=== PATIENT | female | born 1970 | race Caucasian/White ===

== ENCOUNTER 2016-12-05 22:04 | Inpatient (IN) | payer BC, OTHER ==
[~2016-12-05] VITALS: Ht 160 cm; Wt 59.0 kg
[~2016-12-05 22:04] MED LIST: DOXYCYCLINE 10100 MG PO; KEFLEX500 MG PO; LEXAPRO20 MG PO; NOHOMEMEDICATIONS; NORVASC5 MG PO; PERCOCET 5-3251 EACH PO; PHENERGAN 25 MG25 M1 PO
[2016-12-05 22:12] VITALS: BP 172/119
[2016-12-05 23:22] LABS: ABSOLUTE NEUTROPHILS 6.2 thou/uL (1.4-8.2); BASOPHILS 0.3 % (0.0-2.0); EOSINOPHILS 2.5 % (0.0-3.0); HEMATOCRIT 45.2 % (37.0-47.0); HEMOGLOBIN 15.6 gm/dL (12.0-15.0); LYMPHOCYTES 22.4 % (24.0-44.0); MCH 30.1 pg (26.0-34.0); MCHC 34.4 g/dL (28.0-37.0); MCV 87.5 fL (80.0-100.0); MONOCYTES 4.4 % (1.0-8.0); PLATELET COUNT 173 thou/uL (150-400); POLYS 70.4 % (36.0-66.0); RBC 5.17 mil/uL (4.20-5.00); RDW 12.5 % (10.5-14.5); WBC 8.8 thou/uL (4.0-11.0)
[2016-12-05 23:23] LABS: MANUAL DIFF NO; URINE BILIRUBIN NEGATIVE (Negative); URINE BLOOD 1+ (Negative); URINE COLOR YELLOW; URINE GLUCOSE-RANDOM* 3+ (Negative); URINE KETONES NEGATIVE (Negative); URINE NITRITE NEGATIVE (Negative); URINE PROTEIN (DIPSTICK) NEGATIVE (Negative); URINE SPECIFIC GRAVITY <= 1.005 (1.003-1.035); URINE UROBILINOGEN 0.2 E.U./dl (0.2-1.0)
[2016-12-05 23:33] LABS: ALBUMIN 3.3 g/dL (3.4-5.0); CALCIUM 9.2 mg/dL (8.5-10.1); CREATININE 0.9 mg/dL (0.6-1.0); POTASSIUM 3.9 mmol/L (3.5-5.1); TOTAL BILIRUBIN 0.4 mg/dL (<0.1-1.0); TOTAL PROTEIN 6.4 g/dL (6.4-8.2)
[2016-12-05 23:40] LABS: BACTERIA 1-9 Few /HPF (None Seen); CASTS None Seen /LPF (None Seen); CRYSTALS None Seen /LPF (None Seen); SQUAMOUS >10 Many /LPF (0-3); URINE RBC 0-2 Rare /HPF (0-2); URINE WBC None Seen /HPF (0-5); YEAST Present (None Seen)
[2016-12-06] MEDS ORDERED: LISINOPRIL10 MG PO (01:21)
[2016-12-06 01:24] VITALS: BP 175/105
[2016-12-06 04:28] VITALS: BP 156/90
[2016-12-06] MEDS ORDERED: XANAX 0.5 MG0.5 MG PO (05:36)
[2016-12-06 05:51] LABS: HEMATOCRIT 42.7 % (37.0-47.0); MCH 30.3 pg (26.0-34.0); MCHC 35.2 g/dL (28.0-37.0); MCV 86.1 fL (80.0-100.0); RBC 4.96 mil/uL (4.20-5.00); RDW 12.5 % (10.5-14.5)
[2016-12-06 06:04] LABS: CALCIUM 8.3 mg/dL (8.5-10.1); CREATININE 0.4 mg/dL (0.6-1.0); POTASSIUM 3.4 mmol/L (3.5-5.1)
[2016-12-06] MEDS ORDERED: NEURONTIN 300300 M1 PO (07:43)
[2016-12-06] MEDS ORDERED: GLUCOPHAGE XR750 MG PO (07:43)
[2016-12-06] MEDS ORDERED: AMARYL2 MG PO (07:44)
[2016-12-06 14:09] VITALS: BP 156/90
== END 2016-12-06 15:30 | disposition home or self-care (01) | DRG 74 ==
LOC: ER 22:04 → EROBS 12-06 00:32 → 3N 12-06 01:29 → ENTRNSPT 12-06 14:58 → EDTRNSPTSTS 12-06 15:02 → 3N 12-06 15:30
PROVIDERS: Emergency Medicine; Family Medicine
DX: E11.40 Type 2 diabetes mellitus with diabetic neuropathy, unspecified (principal); E11.65 Type 2 diabetes mellitus with hyperglycemia; F32.9 Major depressive disorder, single episode, unspecified; M54.5 Low back pain; K59.00 Constipation, unspecified; F41.9 Anxiety disorder, unspecified; I10 Essential (primary) hypertension; F17.210 Nicotine dependence, cigarettes, uncomplicated; Z79.84 Long term (current) use of oral hypoglycemic drugs; Z79.4 Long term (current) use of insulin; Z79.899 Other long term (current) drug therapy
CPT/HCPCS: 10094

== ENCOUNTER 2017-10-19 13:49 | Emergency (ER) | payer BC, OTHER ==
[~2017-10-19] VITALS: Ht 157.5 cm; Wt 54.4 kg
[~2017-10-19 13:49] MED LIST changes: +AMARYL2 MG PO; +FLEXERIL PO; +GLUCOPHAGE XR750 MG PO; +HYDROCODONE-AP1 EAC6 PO; +LISINOPRIL10 MG PO; +NEURONTIN 300300 M1 PO; +OXYCODONE HCL 55 MG PO; +XANAX 0.5 MG0.5 MG PO
[2017-10-19] MEDS ORDERED: BACTRIM DS TAB1 EACH PO (14:15)
== END 2017-10-19 14:42 | disposition home or self-care (01) ==
LOC: ER 13:49
DX: L03.211 Cellulitis of face (principal); L73.2 Hidradenitis suppurativa; E11.9 Type 2 diabetes mellitus without complications; F17.210 Nicotine dependence, cigarettes, uncomplicated; F32.9 Major depressive disorder, single episode, unspecified; F41.9 Anxiety disorder, unspecified; I10 Essential (primary) hypertension; E28.2 Polycystic ovarian syndrome

== ENCOUNTER → 2020-07-06 | Outpatient (CLI) | payer BC, OTHER ==
[~2020-07-06] MED LIST changes: +BACTRIM DS TAB1 EACH PO; +BASAGLAR K100 UNIT/1 SUBQ; +DAILY VALUE1 EAC1 PO; +LEXAPRO 10 MG T10 MG PO
== END ==
LOC: LAB 09:02
PROVIDERS: Student in an Organized Health Care Education/Training Program; ATTEND Otolaryngology Plastic Surgery within the Head & Neck
DX: Z01.812 Encounter for preprocedural laboratory examination (principal); Z20.822 Contact with and (suspected) exposure to COVID-19

== ENCOUNTER 2020-07-07 10:53 | Day surgery (SDC) | payer BC, OTHER ==
[~2020-07-07] VITALS: Ht 157.5 cm; Wt 63.0 kg
--- NOTE | ~2020-07-07 | O ---
[facility] [place] [address] OPERATIVE REPORT Name: AMY VARGAS Room #: 150-8 [facility] M.R.#: [id number] Admission: 07/07/20 Attend Phys: Jesse Ha MD Discharge: Date of : 66 Report #: [id number] THIS REPORT FOR: cc: Garrett Lazcano MD, Neal A. MD Thompson,Jesse Jacobs MD ~ DATE OF SERVICE: 07/07/2020 SURGEON: Dr. Jesse Ha. PREOPERATIVE DIAGNOSES: 1. Multinodular thyroid. 2. Intranasal lesion. POSTOPERATIVE DIAGNOSES: 1. Multinodular thyroid. 2. Intranasal lesion. OPERATIVE PROCEDURES: 1. Total thyroidectomy. 2. Excision of intranasal lesion. ANESTHESIA: General. ESTIMATED BLOOD LOSS: 30 mL. INDICATIONS FOR SURGERY: The patient is a 50-year-old female with a large multinodular thyroid. The radiology with an ultrasound documented large multinodular thyroid with a very suspicious right-sided nodule. In the bases above at least needle biopsy was recommended. The patient favors proceeding with surgery. Given the findings on ultrasound, I was agreeable to this approach. She also has had a nagging right-sided intranasal lesion. DESCRIPTION OF PROCEDURE: The patient was placed on the operating table in supine position. After general endotracheal anesthesia was achieved and after intubation with a Telisma NIM (nerve integrity monitor), endotracheal tube, each recurrent laryngeal nerve was monitored at threshold sensitivity of 100 microvolt. Stimulator set at 1.0 milliamps. Both recurrent laryngeal nerves identified and preserved during the course of the procedure with the assistance of the nerve monitor and the nerve stimulator. Standard low collar horizontal skin crease incision was outlined in the lower portion of the neck. Skin site was injected with lidocaine with epinephrine. The neck was prepped and draped in sterile fashion. Incision made through skin and subcutaneous tissue and platysma. Subplatysmal skin flaps were elevated [facility] [address] [place] [address] OPERATIVE REPORT Name: AMY VARGAS Room #: 150-8 [facility] M.R.#: [id number] Admission: 07/07/20 Attend Phys: Jesse Ha MD Discharge: Date of : 66 Report #: [id number] superiorly and inferiorly. The strap muscles were divided along the median raphe and retracted laterally allowing exposure of each thyroid lobe. Again, the thyroid gland was multinodular in architecture. I turned my attention to the right side. The inferior pole vessels were isolated. These were divided with Harmonic scalpel. The middle thyroid vein was divided with Harmonic scalpel. The inferior parathyroid was not identified. The superior pole vessels were isolated with upward retraction of strap muscles were divided with Harmonic scalpel. As the gland was rotated over a parathyroid gland was noted on the undersurface just under the right thyroid lobe and preserved. The right recurrent laryngeal nerve was felt into the larynx and preserved, ____ stimulator at all times. Suspension ligament was divided medial and superficial to the nerve. The isthmus was divided and the multinodular right thyroid removed and sent as specimen for frozen section. This was reviewed by pathology and there were no concerning features of papillary thyroid carcinoma noted on frozen section. I turned my attention to the left side. Similar procedure performed. The inferior pole vessels were isolated. They were divided with Harmonic scalpel. The left recurrent laryngeal nerve was identified deep to the left thyroid lobe with a tracheoesophageal groove and followed it up to and into the larynx. The middle thyroid vein was divided with Harmonic scalpel. Superior pole vessels were isolated and divided with Harmonic scalpel. As the gland was rotated over the undersurface of the left thyroid lobe was dissected away from the 2 parathyroid glands, both of which were preserved. The suspension ligament was divided medial and superficial to the nerve. The left thyroid lobe was dissected off the trachea and removed and sent as a specimen. Bipolar cautery was used appropriately to achieve hemostasis. The wound was irrigated with saline. The integrity of each recurrent laryngeal nerve was confirmed with the stimulator. After the pathology, a 10-Guyanese Erick drain was placed in the wound and brought out through stab incision where it was secured to the skin with an Op-Site dressing. The strap muscles were reapproximated with 3-0 Vicryl and skin was closed with buried layer of 4-0 Vicryl and Dermabond. Attention was then turned to the nose. The patient was concerned about this right intranasal lesion. I injected 1 mL lidocaine with epinephrine into the nasal vestibule. I used a 15 blade knife to excise a right lateral nasal vestibule lesion that looks like a wart. This was sent for permanent histopathology. I cauterized the base of this with electrocautery. I then examined the throat at the request of the patient with a tongue depressor and Gilbert Florentino mouth gag. There were 2+ tonsils with cryptic change and tonsil stones. There is no evidence of any malignancy or series pathology. [facility] [address] [place] [address] OPERATIVE REPORT Name: AMY VARGAS Room #: 150-8 [facility]..#: [id number] Admission: 07/07/20 Attend Phys: Jesse Ha MD Discharge: Date of : 66 Report #: [id number] The patient was awakened in the operating room, taken to recovery in stable condition. She was discharged home in the morning after drain removal with Synthroid, cefadroxil, calcium carbonate, calcitriol, acetaminophen with hydrocodone. Her diet is as tolerated. Activity is limited. She also has a serum calcium level on the third postoperative day and return visit in 1 week. By: 1516 1559 Jesse Ha MD /nt
[2020-07-07 11:50] LABS: HEMATOCRIT 47.5 % (37.0-47.0); HEMOGLOBIN 15.8 gm/dL (12.0-15.0); MCH 28.6 pg (26.0-34.0); MCHC 33.2 g/dL (28.0-37.0); MCV 86.2 fL (80.0-100.0); RBC 5.51 mil/uL (4.20-5.00); RDW 13.3 % (10.5-14.5); WBC 12.2 thou/uL (4.0-11.0)
[2020-07-07 11:57] VITALS: BP 163/104
[2020-07-07 11:59] LABS: CALCIUM 9.1 mg/dL (8.5-10.1); CREATININE 0.9 mg/dL (0.6-1.0); POTASSIUM 4.1 mmol/L (3.5-5.1)
[2020-07-07 12:05] LABS: ALBUMIN 3.5 g/dL (3.4-5.0); TOTAL BILIRUBIN 0.6 mg/dL (0.2-1.0); TOTAL PROTEIN 7.2 g/dL (6.4-8.2)
--- NOTE | 2020-07-07 15:30 | EKG ---
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 : 1970 Requested By: Jesse Ha Order Number: [id number] : Kenji Cabrera Measurements Intervals [place] Rate: 77 P: 78 MA: 141 QRS: 36 QRSD: 73 T: 61 QT: 385 QTc: 436 Interpretive Statements Sinus rhythm Consider right atrial enlargement ST elev, probable normal early repol pattern Baseline wander in lead(s) I,III,aVL,aVF,V3,V4,V5 Compared to ECG 01/22/2017 17:39:19 ST (T wave) deviation now present Sinus tachycardia no longer present Electronically Signed On 07-07-2020 15:30:43 CDT by Kenji Cabrera [email or web address] <ELECTRONICALLY SIGNED> By: Kenji Cabrera MD, FAC 07/07/20 1530 1152 1152 Kenji Cabrera MD, [facility] /EPI
[2020-07-07 16:45] VITALS: BP 159/90
--- NOTE | 2020-07-07 18:09 | NUR ---
ASSUMED PT CARE AROUND 1640. PT ALERT X ORIENTED X 4. ON 2L/O2/NC. IV RT FA WITH 1/2 NSWITH 20MEQ KCL/75ML/HR.DERMABAND ON NECK. SCDS/TEDS ON. FLORENTINO PRAT DRAIN WITH SEROSANGUINOUS DISCHARGE. VSS. BLOOD SUGAR WAS HIGH POST OP. BS 234 AT 1730, 10U OF INSULIN GIVEN. EATING AND DRINKING WELL. PAIN CONTROLLED BY PAIN MEDICINE. AT BEDSIDE. FALL PRECAUTION IN PLACE. CALL LIGHT IN REACH. WILL CALL APPROPRIATELY. WILL CONTINUE TO MONITOR.
[2020-07-07 19:41] VITALS: BP 144/90
[2020-07-08 01:06] LABS: GLYCOHEMOGLOBIN (HGB A1C) 11.8 % (4.8-5.6)
[2020-07-08 03:42] VITALS: BP 145/96
--- NOTE | 2020-07-08 04:19 | NUR ---
ASSUMED PT CARE TA 1899.PT C/O PAIN TO HER THROAT,MANAGED WITH MED.PT HAD AN EPISODE OF PANIC ATTACK,WAS OBSERVED CRYING WHEN THIE NURSE WENT INTO HER ROOM TO CHECK ON HER.PT STATED THAT SHE TAKES LEXAPRO AT HOME FOR ANXIETY.MED NOT ON PT'S EMAR.THIS NURSE NOTIFIED PT THAT SHE WILL CALL HER PCP TO GET AN ORDER FOR HER MED,PT DECLINED.PT STATED"I WILL BE FINE,PLEASE DON'T WAKE HIM UP AT THIS TIME OF MORNING".PT PUT ON 2L/NC.PT RESTING ON HER BED AT THIS TIME.CALL LIGHT WITHIN REACH.
[2020-07-08 07:41] VITALS: BP 144/82
[2020-07-08 07:55] VITALS: BP 144/82
[2020-07-08 09:53] VITALS: BP 144/82
--- NOTE | 2020-07-08 11:07 | NUR ---
ASSUMED CARE OF PT AT 0700 THIS MORNING. PT WAS ADMITTED FOR POST SURGERY OF THE THYROID. PT HAS INCISION AT THE BASE OF THE NECK WITH DERMABOND. SHOWING SOME REDNESS AND A ALEX DRAIN 4 INCHES DISTAL OF THE INCISION. PT IS A/O X4, ABLE TO SPEAK WELL, NO SWELLING NOTED IN THE NECK AND THROAT. SKIN INTACT WITH NO TENTING. SKIN IS W/D/P, EYES PERRLA, LUNGS CLEAR ALL WILSON, CR< 3SEC. ASSESSMENT IS OTHERWISE UNREMARKABLE. DR. PLATA AND THERESA ARE SONSULTING EACH OTHER ABOUT PT'S BLO0D SUGAR CONTROL AND CONSULTATION WITH CADMIUM BURNER. PT IS TO BE DISCHARGED AFTER THE CONSULT. DR. PLATA LEFT NO INSTRUCTIONS FOR REMOVING OR MAINTAINING ALEX DRAIN. CALLED THE OFFICE TO HAVE THE ORDER ENTERED. THE NURSE STATED THAT THEY DON'T ENTER ORDERS FOR REMOVING DRAINS. RN PLACED ORDER BY TELEPHONE TO HAVE ALEX DRAIN DISCONTINUED. PT WAS GIVEN EDUCATION ON BATHING AND CARE OF THE INCISION SITE AND SMOKING CESSATION PACKET.
--- NOTE | 2020-07-08 12:31 | NUR ---
ASSESSMENT: CM REVIEWED CHART AND SPOKE WITH PATIENT AT THE BEDSIDE. PT LIVES AT HOME WITH HER . PT REPORTS SHE IS FULLY INDEPENDENT WITH ADLS AND AMBULATION. PT REPORTS SHE HAS NO DME OR THE NEED FOR IT. PT IS S/P THYROIDECTOMY. PT REPORTS SHE HAS A GLUCOMTER AT HOME TO CHECK HER BLOOD SUGAR. PT REPORTS SHE HAS NO NEEDS FROM CM PRIOR TO DISCHARGE. PT IS DISCHARGING TODAY.
--- NOTE | 2020-07-11 17:06 | PATH ---
[facility] [place] [address] PATHOLOGY RPT PROCEDURE Name: AMY BORGES Room #: [facility]..#: [id number] Admission: 07/07/20 Date of : 66 Discharge: 07/08/20 Report #: [id number] Path Case #: [id number] [facility] Accession Number: [id number] . 01 Material submitted: . PART A: thyroid gland - RIGHT THYROID LOBE ISTHMUS FS. Modifiers: right PART B: thyroid gland - LEFT THYROID LOBE. Modifiers: left PART C: nasal cavity - RIGHT NASAL NARE LESION. Modifiers: right . 01 Clinical history: . THYROIDECTOMY MULTINODULAR THYROID INTERNAL NASAL LESION . 02 Frozen section diagnosis: . FROZEN SECTION DIAGNOSIS: (Daiana Cárdenas M.D.): . FSA1 and TPA2: Right thyroid lobe and isthmus, lobectomy: - Multiple nodules identified 1.5 cm, 0.4 cm and 0.7 cm. - FS slide with mixed macro and micronodular architecture in the 1.5 cm nodule. - TPA2 (of all the nodules) negative for nuclear features of papillary carcinoma. . These findings are discussed with Dr. Jesse Ha in OR1 at [facility] and a written report is placed in the patient's chart. . Frozen section and touch prep performed at [facility], [address] [place], [place] [address]mar[address], [place] [address]. . . FROZEN SECTION GROSS DESCRIPTION: The specimen is received fresh from the OR labeled with the patient's name, and "right thyroid lobe and isthmus" consists of a 12.8-gram thyroid lobectomy specimen measuring 4.0 x 2.5 x 1.5 cm. The capsule is inked black. At this point the specimen is serially sectioned and it shows multiple nodules with the smallest measuring 0.4 cm, and the largest measuring 1.5 cm at the possible lower end of the lobe. At this point a parts representative section of the 1.5 cm nodule is submitted for frozen section as FSA1. This is subsequently submitted for permanent sections as A1. A touch preparation is made of the additional nodules identified within the remainder of the lobe labeled as TPA2 and used for immediate evaluation rendered intraoperatively. At this point the specimen is sectioned and submitted in entirety as follows: The nodule identified at the upper pole along with its adjacent 0.4 cm nodule are submitted in A2. The remainder of the 1.5 cm nodule identified at the lower pole is submitted in A3 and A4. The additional nodule identified at the upper pole is submitted in A5. The lobe is submitted in entirety [place] [address] PATHOLOGY RPT PROCEDURE Name: AMY BORGES Room #: [facility]P [facility]..#: [id number] Admission: 07/07/20 Date of : 66 Discharge: 07/08/20 Report #: [id number] Path Case #: [id number] A8. (IUV/db; 07/07/2020) ALANNA/LBQ . 02 Diagnosis: Thyroid, right thyroid lobe and isthmus, lobectomy: - 6 mm microfollicular adenoma; negative for capsular invasion. 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 - One lymph node identified within perithyroidal soft tissue showing reactive changes. (IUV:pit 07/08/2020) . QTP 07/08/2020 1339 Local . 02 Addendum: . B. Thyroid, left thyroid lobe, lobectomy: - Multinodular hyperplasia with the largest nodule showing predominantly Hurthle cell change forming macro and micronodules. - Focal reactive skeletal muscle identified in perithyroidal soft tissue. . C. Skin, right nasal nare lesion, biopsy: - SQUAMOUS CELL CARCINOMA IN SITU. - Arising in a background of verrucoid keratosis. - Margins of resection free of malignancy. . 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 02 Electronically signed: . Daiana Cárdenas MD, Pathologist NPI- [id number] . 01 Gross description: . SEE FROZEN SECTION GROSS DESCRIPTION. . B. Received in formalin labeled "Amy Borges, left thyroid lobe" is an unoriented hemithyroidectomy specimen weighing 7 g and measuring 3.5 x 2.5 x 2.0 cm. The capsule is red-brown and mostly smooth with multiple roughened slightly ragged areas. The ragged areas are inked blue and the remaining capsule is inked black. The specimen is sectioned to reveal multiple martinez-brown gelatinous nodules ranging from 0.3-1.7 cm in greatest dimension. The specimen is submitted entirely in cassettes B1-B6. . C. Received in formalin labeled "Amy Borges, right nasal nare [address] [address] PATHOLOGY RPT PROCEDURE Name: AMY BORGES BASTIAN Room #: DEP [facility].#: [id number] Admission: 07/07/20 Date of : 66 Discharge: 07/08/20 Report #: [id number] Path Case #: [id number] lesion" is a skin shave biopsy measuring 0.5 x 0.4 x 0.1 cm. The skin surface displays a raised martinez-white nodular lesion measuring 0.2 x 0.2 x 0.2 cm. The margin is inked and the specimen is submitted without sectioning in C1. ([facility]; 07/08/2020) SY/LBQ 07/08/2020 [facility] Local . 02 Pathologist provided ICD-10: E04.1, E04.9, D04.39, L57.0 . 02 CPT . 216925, 281999, 354435, 590358, 779903 Specimen Comment: A courtesy copy of this report has been sent to [phone], [phone] Specimen Comment: [id number] Specimen Comment: Report sent to / DR CARDENAS Performed at: 01 [facility] [address] [place] [address] [address], [place] [id number] MD Janak Dimas MD Phone: [phone] Performed at: [address] [id number] MD Daiana Cárdenas MD Phone: [phone]
== END 2020-07-08 11:50 | disposition home or self-care (01) ==
LOC: OR 10:53 → TBA 11:15 → OR 13:19 → 4S 16:29 → OR 07-08 11:50
PROVIDERS: Family Medicine; ATTEND Otolaryngology Plastic Surgery within the Head & Neck
DX: E04.2 Nontoxic multinodular goiter (principal); D04.39 Carcinoma in situ of skin of other parts of face; L57.0 Actinic keratosis; I10 Essential (primary) hypertension; E11.9 Type 2 diabetes mellitus without complications; F32.9 Major depressive disorder, single episode, unspecified; F41.9 Anxiety disorder, unspecified; F17.210 Nicotine dependence, cigarettes, uncomplicated; Z98.890 Other specified postprocedural states; Z79.899 Other long term (current) drug therapy
CPT/HCPCS: 50010; 50101; 50331; 50386; 50417; 52190; 52220; 54118; 56524; 56526; 57006; 62110; 62900; 70005